=== PATIENT | male | born 1995 | race Caucasian/White ===

== ENCOUNTER 2018-02-28 07:33 | Emergency (ER) | payer SELFPAY ==
[~2018-02-28] VITALS: Ht 170.2 cm; Wt 74.8 kg
[2018-02-28] MEDS ORDERED: TDAP [DIPH/PERTUSSIS/TET] 0.5 ML VIAL IM ONE ×2 (07:55→08:00)
--- NOTE | 2018-02-28 07:56 | NUR ---
BIB SELF W C/O LEFT INDEX AND MIDDLE FINGER AVULSION. TO ER BED 10, VSS, AWAITING MD [facility]
[2018-02-28] MEDS ORDERED: LIDOCAINE HCL/MPF 1% 30 ML VIAL IJ ONE (08:04)
[2018-02-28] MEDS ORDERED: LIDOCAINE 1% INJ 50 ML MDV IJ ONE (08:30)
[2018-02-28 09:22] VITALS: BP 136/78
--- NOTE | 2018-02-28 09:23 | NUR ---
Patient discharged to home in stable condition. Written and verbal after care instructions given. Patient verbalizes understanding of instruction.
== END 2018-02-28 09:23 | disposition home or self-care (01) ==
LOC: ER 07:42
DX: S61.211A Laceration without foreign body of left index finger without damage to nail, initial encounter (principal); W45.8XXA Other foreign body or object entering through skin, initial encounter; Y93.89 Activity, other specified; Y92.89 Other specified places as the place of occurrence of the external cause; Y99.8 Other external cause status
CPT/HCPCS: 12001; 73140; 90471; 90715; 99283; A4606; A6402; A6403; J3490; Z7610

== ENCOUNTER 2018-06-14 19:21 | Emergency (ER) | payer OTHER ==
[~2018-06-14] VITALS: Ht 175.3 cm; Wt 78.0 kg
--- NOTE | 2018-06-14 20:13 | NUR ---
PT BIBSELF FOR ABD PAIN, PT AAOX4, PT ON MONITOR, VSS, NAD NOTED, PENDING MD [facility]ILL
[2018-06-14 20:49] LABS: BASOPHILS % (AUTO) 0.5 % (0.0-2.0); EOSINOPHILS % (AUTO) 4.1 % (0.0-6.0); HEMATOCRIT 44 % (39-51); HEMOGLOBIN 15.2 g/dL (13.5-17.5); LYMPHOCYTES # (AUTO) 1.8 /CMM (0.8-4.8); LYMPHOCYTES % (AUTO) 32.8 % (20.0-44.0); MEAN CORPUSCULAR HGB CONC 35 g/dl (31.0-36.0); MEAN CORPUSCULAR VOLUME 85 fL (80-96); MONOCYTES # (AUTO) 0.6 /CMM (0.1-1.30); MONOCYTES % (AUTO) 10.4 % (2.0-12.0); NEUTROPHILS # (AUTO) 2.8 /CMM (1.8-8.9); NEUTROPHILS % (AUTO) 52.2 % (43.0-81.0); PLATELET COUNT (AUTO) 200 /CMM (150-450); RED BLOOD CELL COUNT(AUTO) 5.14 MIL/uL (4.5-6.0); WHITE BLOOD COUNT (AUTO) 5.4 K/uL (4.3-11.0)
[2018-06-14 20:56] LABS: APPEARANCE,URINE Clear (CLEAR); BILIRUBIN,URINE Negative (NEGATIVE); BLOOD, URINE Trace-intact Ery/uL (NEGATIVE); CALCIUM, SERUM 9.3 mg/dL (8.5-10.1); COLOR,URINE Yellow (YELLOW); CREATININE 0.9 mg/dL (0.6-1.3); KETONES,URINE Negative (NEGATIVE); LEUKOCYTE ESTERASE ,URINE Trace (NEGATIVE); NITRITE, URINE Negative (NEGATIVE); PH,URINE 5.5 (5.0-8.0); POTASSIUM 3.7 mmol/L (3.5-5.1); PROTEIN,URINE Negative (NEGATIVE); UGLUCOSE Negative (NEGATIVE); UROBILINOGEN,URINE 0.2 EU/dL (0.2)
[2018-06-14 21:02] LABS: ALBUMIN 4.2 g/dL (3.4-5.0); BILIRUBIN,DIRECT 0.1 mg/dL (0.0-0.2); BILIRUBIN,TOTAL 0.5 mg/dL (0.2-1.0); TOTAL PROTEIN, SERUM 8.1 g/dL (6.4-8.2)
[2018-06-14 21:03] LABS: BACTERIA,URINE Few /HPF (None Seen); SQUAMOUS EPITHELIAL CELL,UR Few /HPF (None Seen)
[2018-06-14] MEDS ORDERED: CIPROFLOXACIN HCL 250 MG TABLET PO ONE (22:00)
[2018-06-14] MEDS ORDERED: CIPROFLOXACIN HCL 500 MG TABLET ONE (22:00)
[2018-06-14 22:12] VITALS: BP 149/75
--- NOTE | 2018-06-14 22:14 | NUR ---
Patient discharged to home in stable condition. Written and verbal after care instructions given. Patient verbalizes understanding of instruction.
== END 2018-06-14 22:15 | disposition home or self-care (01) ==
LOC: ER 19:24
DX: N39.0 Urinary tract infection, site not specified (principal); R10.12 Left upper quadrant pain
CPT/HCPCS: 36415; 71100-TC; 76700-TC; 80048-TC; 80076-TC; 81000-TC; 83690-TC; 85025-TC; 87086-TC